=== PATIENT | female | born 1990 | race Caucasian/White ===

== ENCOUNTER 2017-03-18 10:01 | Day surgery (SDC) | payer OTHER ==
[~2017-03-18] VITALS: Ht 167.6 cm; Wt 51.0 kg
[2017-03-18] VITALS (13 sets, daily range): BP systolic 100–113; BP diastolic 65–90; PULSE 86–101; RESP 12–25; Ht 167.6 cm; Wt 51.0 kg
[~2017-03-18 10:01] MED LIST: ACETAMINOPHEN 1000 MG/100 ML IVPB ONE; CEFAZOLIN 2 GM/50 ML (PMX) 50 ML IVPB SCH; LIDOCAINE 1% (MPF) 5 ML VIAL ONE; ROCURONIUM 50 MG INJ ONE; SEVOFLURANE 15 MIN ONE; SOD CHLORIDE 0.9% 1,000 ML IV SCH
[2017-03-18] MEDS ORDERED: ONDA-43 PO (10:50)
[2017-03-18] MEDS ORDERED: BUPIVACAINE 0.25% (MPF) 30 ML INJ ONE (11:41)
[2017-03-18] MEDS ORDERED: PROPOFOL 20 ML ONE (11:41)
[2017-03-18] MEDS ORDERED: FENTAnyl 50 MCG/ML VIAL ONE (11:42)
[2017-03-18] MEDS ORDERED: ONDANSETRON 4 MG INJ ONE (11:42)
[2017-03-18] MEDS ORDERED: DEXAMETHASONE 4 MG/ML 1 ML INJ ONE (11:42)
[2017-03-18] MEDS ORDERED: MIDAZOLAM 1 MG/ML 2 ML INJ ONE (11:42)
[2017-03-18] MEDS ORDERED: ROPIVACAINE 0.2% 20 ML VIAL ONE (11:45)
[2017-03-18] MEDS ORDERED: CEFAZOLIN 1 GM INJ ONE (11:49)
[2017-03-18] MEDS ORDERED: SUGAMMADEX SODIUM 200 MG/2 ML VIAL IV ONE (12:27)
[2017-03-18] MEDS ORDERED: METOCLOPRAMIDE 10 MG INJ IV PRN (12:30)
[2017-03-18] MEDS ORDERED: ONDANSETRON 4 MG INJ IV PRN (12:30)
[2017-03-18] MEDS ORDERED: MEPERIDINE 25 MG INJ IV PRN (12:30)
[2017-03-18] MEDS ORDERED: morphine (1 MG/ML) 10ML SYRINGE IV PRN (12:30)
[2017-03-18] MEDS ORDERED: FENTAnyl 50 MCG/ML VIAL IV PRN ×2 (12:30)
[2017-03-18] MEDS ORDERED: MIDAZOLAM 1 MG/ML 2 ML INJ IV PRN (12:30)
--- NOTE | 2017-03-18 12:39 | OPR ---
Date/Time of Note Date/Time of Note DATE: 03/18/17 TIME: 12:35 Operative Report Procedure Date: Mar 18, 2017 Preoperative Diagnosis symptomatic gallstones Postoperative Diagnosis same Operation Performed 1. laparoscopic cholecystectomy 2. therapeutic subcutaneous injection of marcaine cpt code [id number] Surgeon: Dimas BYRD Engineering Illustrator: RADHA JOHNSON MD Specimens gallbladder Indications This is a 26-year-old female with symptomatic gallstones. She required surgical excision of her gallbladder. Risks alternatives benefits and percent were discussed the patient. Patient expresses understanding and consents to the operation. Procedure Description Patient is taken to the OR and prepped and draped in usual sterile fashion. Surgical timeout was performed. IV antibiotics are given. Infraumbilical incision is made transversely with a 15 blade. Dissection cautery was carried onto the fascia. The fascia was grasped with Nora's and divided with curved Armas scissors. 0 Vicryl U stitch is placed into the fascia. Balloon Langley trocar is introduced pneumoperitoneum is established. Midepigastric 12 mm optical trocar was placed under direct visualization. Right upper quadrant right upper flank 5 mm optical trocar was placed under direct visualization. Upon initial inspection there are some adhesions to the gallbladder which were taken down bluntly the cystic duct is identified a critical view is established the cystic duct and cystic artery were divided using a 35 mm echelon vascular stapler due to the thickness of the tissues. Additional clips are placed for reinforcement of the staple line. Gallbladder was taken off the gallbladder bed. There is good hemostasis. Gallbladder was retrieved using an Endo Catch bag. Ports removed under direct visualization. 0 Vicryl U stitch was tied down. Skin is closed using skin ag. Therapeutic subcutaneous Marcaine is injected throughout the incision lines. Dry dressings were applied. Dimas BYRD Mar 18, 2017 12:39
[2017-03-18] MEDS ORDERED: HYDROCODONE/APAP (5/325) TAB PO ONE (13:00)
[2017-03-18] MEDS: morphine (1 MG/ML) 10ML SYRINGE IV PRN ×2 (13:49→14:28)
== END 2017-03-18 16:50 | disposition home or self-care (01) ==
LOC: SDS 10:01
PROVIDERS: ATTEND Surgery
DX: K80.10 Calculus of gallbladder with chronic cholecystitis without obstruction (principal)
CPT/HCPCS: 47562; 84703; 88304; J0131; J0690; J1100; J2250; J2270; J2405; J2795; J3010; Z7512; Z7610